=== PATIENT | female | born 1995 | race Caucasian/White ===

== ENCOUNTER 2016-08-23 20:30 | Observation (INO) | payer OTHER ==
[~2016-08-23] VITALS: Ht 160 cm; Wt 74.7 kg
--- NOTE | ~2016-08-23 | HP ---
PATIENT'S NAME: TIFF ADONIS [facility] AGE: 20 Y [address] ROOM: [place] [id number] LOCATION: [facility] [place] ADMIT DATE: 08/23/2016 History & Physical DISCHARGE DATE: FAMILY PHYSICIAN: Raymond Bah MD ATTENDING PHYSICIAN: Ramos De Paz DATE OF SERVICE: CHIEF COMPLAINT: Abdominal pain. REVIEW OF RECORD: Ms. Matthew is a pleasant 20-year-old Mohawk-speaking female who presented to the emergency room this evening with complaints of 5-day history of abdominal pain, she points to her epigastrium and right upper quadrant and radiating to her back. She said she had some fevers without documentation and also chills. She has not had any jaundice, but she has had some nausea and vomiting. Had no diarrhea, no dysuria or hematuria. She denies state. She said she has had the same kind of pain in March, she was diagnosed with gastroesophageal reflux disease. Said that, however, this pain is different because it has not quit. The workup included laboratory data which showed normal amylase, lipase, and liver function tests. Her urine had some nitrites in it and was sent for culture. However, her white count was up to 17,000. The ER team was suspicious for cholecystitis. Ultrasound performed showed thick-walled gallbladder with some pericholecystic fluid and gallstones with 1.5 cm one lodged in the infundibulum. Her pain was not going away, so they recommended surgical evaluation. The patient states she has not had any previous abdominal operations. She has not had any pancreatitis. She has no drug use. PAST MEDICAL HISTORY: MEDICATIONS: None. ALLERGIES: NONE. OPERATIONS: None. SOCIAL HISTORY: She is single. Does not smoke or abuse alcohol. FAMILY HISTORY: PATIENT'S NAME: ADONIS MATTHEW [facility] AGE: 20 Y [address] ROOM: [place] [address] LOCATION: [facility] [place] ADMIT DATE: 08/23/2016 History & Physical DISCHARGE DATE: FAMILY PHYSICIAN: Raymond Bah MD ATTENDING PHYSICIAN: Ramos De Paz Unremarkable for any heart disease, cancer, or diabetes. REVIEW OF SYSTEMS: She reports undocumented fevers. She has nausea. She has no change in her hearing or vision. No problems swallowing. Does not really have acid reflux symptoms. She reports occasional cough without sputum production. Denies any shortness of breath or chest pain. No lower abdominal pain. No dysuria or hematuria. No swollen joints. She does report the right flank back pain. PHYSICAL EXAMINATION: GENERAL: She is a distressed 20-year-old young lady, alert and cooperative. VITAL SIGNS: Temperature is 99.7, her pulse is 115, respiratory rate of 16, blood pressure 132/85, and 96% saturated on room air. HEENT: Her head is normocephalic. Sclerae are nonicteric. Mucous membranes are dry. NECK: Supple. There is no adenopathy. LUNGS: Clear to auscultation. HEART: Normal sinus rhythm with tachycardia noted. ABDOMEN: Mildly obese. Positive bowel sounds. It is soft in the lower abdomen, suprapubic location. Palpation of the right upper quadrant revealed tenderness and a slight tendency to guard. She has no palpable hepato or splenomegaly. EXTREMITIES: She has 2/2 femoral and dorsalis pedis pulses. No peripheral edema. IMPRESSION: Previous history of biliary colic symptoms, most likely in March, now this attack unremitting. She has no clinical signs of urinary tract infection, but she had an ultrasound which radiology interpreted as acute cholecystitis with gallbladder wall thickening and stones. The clinical picture fits with cholecystitis, and recommended laparoscopic cholecystectomy. The procedure, benefits, and risks including, but not limited to abdominal wall hernias, bowel injury, bleeding requiring transfusion, bile leak, common bile duct injury, cardiac pulmonary decompensation, and loss of life. We gave the option of nonoperative treatment with antibiotics. The patient and her family agreed to proceed. Thank you very much for allowing me to participate in her care. RAMOS DE PAZ MD WTS/modl PATIENT'S NAME: ADONIS MATTHEW [facility] AGE: 20 Y [address] ROOM: [address] [address] LOCATION: [facility] [place] ADMIT DATE: 08/23/2016 History & Physical DISCHARGE DATE: FAMILY PHYSICIAN: Raymond Bah MD ATTENDING PHYSICIAN: Ramos De Paz /[id number] D: [id number] T: [id number] HISTORY & PHYSICAL
--- NOTE | ~2016-08-23 | ER ---
PATIENT'S NAME: [facility] AGE: 20 Y [address] ROOM: [place] [address] LOCATION: [facility] [place] ADMIT DATE: 08/23/2016 ER/Outpatient Report DISCHARGE DATE: FAMILY PHYSICIAN: Raymond Bah MD ATTENDING PHYSICIAN: Ramos Sherman Time of Arrival: 2030 hours. Time of Evaluation: 0 hours. CHIEF COMPLAINT: Abdominal pain, fever. HISTORY OF PRESENT ILLNESS: This is a 20-year-old female, who presents to the ER. She states she has not been feeling well since Sunday. She states that she developed some upper abdominal pain, and she states that pain does wrap around both sides of her upper abdomen. She states then last night she had approximately seven emesis, but then her pain worsened tonight. She states that she feels like she has been having a fever, but she is not sure if she has had some urinary frequency. No pain with urination. She states that she has had some upper abdominal pain like this in the past, but that pain has always gone away. She does associate eating food with her abdominal pain. She did take a Zantac and a Zofran today, which did not help her. ALLERGIES: NO KNOWN ALLERGIES. MEDICATIONS: None. PAST MEDICAL HISTORY: Negative. PAST SURGERIES: None. SOCIAL HISTORY: No smoking, drug, or alcohol use. REVIEW OF SYSTEMS: All systems reviewed and are negative with the exception of those discussed in the HPI. PHYSICAL EXAMINATION: VITAL SIGNS: Height 5 feet 3 inches stated, weight 74.0 kg taken, blood PATIENT'S NAME: [facility] AGE: 20 Y [address] ROOM: [address] [address] LOCATION: [facility] [place] ADMIT DATE: 08/23/2016 ER/Outpatient Report DISCHARGE DATE: FAMILY PHYSICIAN: Raymond Bah MD ATTENDING PHYSICIAN: Ramos Sherman pressure is 132/85, pulse 115, respirations 16, temperature 99.7 degrees tympanically, and saturations 96% on room air. Alexandria Coma Score is 15. GENERAL: Alert, calm, well-developed female, in mild distress. HEENT: Head: Normocephalic. She does display moist mucous membranes. Eyes: Pupils are equal and reactive to light. NECK: Supple. No lymphadenopathy. LUNGS: Clear to auscultation bilaterally. HEART: Tachycardic. Normal rhythm. ABDOMEN: Soft. She does have some pain with palpation in midepigastric region. She has good bowel sounds throughout. No masses were palpated. EXTREMITIES: No clubbing, cyanosis, or edema. Full range of motion of all limbs. SKIN: Warm dry and intact. NEURO: Cranial nerves 2 through 12 grossly intact. Gait is steady without assistance. LABORATORY DATA: CBC: White count 18873, hemoglobin is 14.1, and platelets 298. CMS: Sodium 139, potassium 3.5, BUN 7, creatinine 0.6, alkaline phosphatase 72, AST 15, ALT 25, amylase 33, lipase is 83. Urinalysis, leukocytes 100, nitrites positive. UA micro, white blood cells 5-10, red blood cells 10-20, epithelial 10-20, bacteria many. Urine HCG was negative. Ultrasound of the right upper quadrant shows a sludge with gallbladder wall thickening and gallstones consistent with the early acute cholecystitis. IMPRESSION: 1. Cholecystitis. 2. Urinary tract infection. ASSESSMENT AND PLAN: We did start an IV here in the emergency room and did give her some IV fluids along with 4 mg of zofran and a total of 4 mg of morphine for her pain. I did discuss the patient's care with Dr. Cash. I also called Dr. Sherman, who is on-call for surgery this evening, he will be coming in to evaluate the patient here in the emergency room. We will be turning the care over to Dr. Sherman at this time. The patient's mother understands and agrees with care. SAPPHIRE CARO PA-C FOR MD DANNIE DEL CASTILLO/shakeel PATIENT'S NAME: ADONIS MATTHEW [facility] AGE: 20 Y [address] ROOM: [place] [address] LOCATION: [facility] [place] ADMIT DATE: 08/23/2016 ER/Outpatient Report DISCHARGE DATE: FAMILY PHYSICIAN: Raymond Bah MD ATTENDING PHYSICIAN: Ramos Sherman /[id number] d: t: 08/26/16 1220, OUTPATIENT REPORT
--- NOTE | ~2016-08-23 | OR ---
PATIENT'S NAME: ADONIS MATTHEW [facility] AGE: 20 Y [address] ROOM: [address] [address] LOCATION: [facility] [place] ADMIT DATE: 08/23/2016 OR/Procedure Report DISCHARGE DATE: FAMILY PHYSICIAN: Raymond Bah MD ATTENDING PHYSICIAN: Cristian Sherman SURGEON: Cristian Sherman MD OPERATOR ELECTRONIC WARFARE: DATE OF PROCEDURE: 08/23/2016 PREOPERATIVE DIAGNOSIS: Acute cholecystitis/cholelithiasis. POSTOPERATIVE DIAGNOSES: Acute cholecystitis/cholelithiasis, cystic duct obstruction in the infundibulum secondary to stone impaction. PROCEDURE: Laparoscopic cholecystectomy. ANESTHESIA: General with 30 mL of 0.5% Marcaine. SPECIMENS: Gallbladder with stones and acute inflammatory changes. INDICATION: The patient is a 20-year-old young lady with a 5-day history of abdominal pain in the epigastrium, right upper quadrant radiating to [place] [address]. Normal liver function tests, amylase, and lipase. However, ultrasound showed gallbladder with thickened wall, edematous wall, and impacted stone in the infundibulum. She was clinically consistent with acute cholecystitis. She has had previous biliary colic attacks. The patient agrees to undergo cholecystectomy. DESCRIPTION OF PROCEDURE: After informed consent, the patient was taken to the operating room, and after general endotracheal anesthesia, the patient's abdomen was prepped and draped into a sterile field. Time-out performed. We confirmed the patient, planned procedure, and administration of preop antibiotics. Local anesthetic infiltrated prior to each incision. The first one made below the umbilicus, carried down to identify the anterior fascia through which a Veress needle inserted, pneumoperitoneum created, an 11-mm trocar and laparoscope were inserted, safe entry was noted under direct vision, the remaining trocars were placed. The gallbladder had inflammatory changes and exudative process on top of it and it was tightly distended. We had to aspirate 30 mL of purulent looking bile out of the gallbladder in order to grab the fundus, we then retracted at cephalad and laterally. We stripped down the edematous hepatoduodenal ligament until we identified, and I got circumferential control around the small caliber cystic duct. Obvious stone impaction in the infundibulum was noted. We clipped the cystic duct x4 and divided with one clip remaining on the specimen side. The cystic artery was then dissected out carefully, clipped x3 and divided. The gallbladder was PATIENT'S NAME: ADONIS MATTHEW [facility] AGE: 20 Y [address] ROOM: [address] [place], [place] [address] LOCATION: [facility] [place] ADMIT DATE: 08/23/2016 OR/Procedure Report DISCHARGE DATE: FAMILY PHYSICIAN: Raymond Bah MD ATTENDING PHYSICIAN: Cristian Sherman removed from the liver bed with electrocautery, placed into an EndoCatch bag, and brought out through the umbilical fascial defect. We irrigated the gallbladder fossa, cauterized for hemostasis. We copiously irrigated until clear. We used 0 Vicryl and an Endo Close to approximate the fascial defect in the subxiphoid location. We then closed the fascial defect at the umbilicus with 0 Vicryl, skin incisions closed with subcuticular 4-0 Vicryl. Steri-Strips and sterile dressings were applied. The patient tolerated the procedure well, transferred to recovery room in stable condition. CRISTIAN SHERMAN MD WTS/modl /[id number] d: 08/24/16 0529 t: 09/04/16 1540, OPERATIVE SUMMARY
[2016-08-23 20:44] LABS: BILIRUBIN URINE NEGATIVE (NEGATIVE); BLOOD URINE 25 /UL (NEGATIVE); COLOR URINE YELLOW (YELLOW); GLUCOSE URINE NEGATIVE (NEGATIVE); KETONE URINE 150 mg/dL (NEGATIVE); LEUKOCYTES URINE 100 /UL (NEGATIVE); NITRITE URINE POSITIVE (NEGATIVE); PROTEIN URINE 30 mg/dL (NEGATIVE); SPEC GRAVITY URINE 1.025 (1.003-1.035); TURBIDITY URINE 1+ (CLEAR); UROBILINOGEN URINE 1 mg/dL (NORMAL)
[2016-08-23 21:04] LABS: BACTERIA URINE MANY (NEGATIVE); MUCUS URINE 2+ (NEGATIVE)
[2016-08-23 21:12] LABS: BASOPHIL % 0.2 %; HEMOGLOBIN 14.1 g/dL (11.0-15.0); IMMATURE GRANULOCYTE # 0.1 K/uL (0.0-0.3); IMMATURE GRANULOCYTE % 0.4 %; LYMPHOCYTE # 1.7 K/uL (0.8-4.0); LYMPHOCYTE % 9.7 %; MCH 25.3 pg (27.0-34.0); MCHC 32.8 gm/dL (32.0-36.5); MCV 77.2 fl (83.0-98.0); MONOCYTE # 1.5 K/uL (0.0-1.0); MONOCYTE % 8.9 %; MPV 11.8 fl (9.4-12.4); NEUTROPHIL # (ANC) 13.8 K/uL (1.8-7.8); NEUTROPHIL % 80.8 %; NRBC % 0 /100WBC (0-0.00); PLATELET COUNT 298 K/uL (150-450); RBC 5.57 M/uL (3.50-5.00); RDW-CV 14.5 % (11.9-14.6)
[2016-08-23 21:32] LABS: ALBUMIN 3.5 gm/dL (3.5-5.0); ALK PHOS 72 IU/L (33-138); ALT 25 IU/L (12-78); ANION GAP 12.5 (10.0-19.0); AST 15 IU/L (10-40); BLOOD UREA NITROGEN 7 mg/dL (6-24); CHLORIDE 107 mMol/L (96-110); CO2 23 mMol/L (22-32); CREATININE 0.6 mg/dL (0.5-1.1); ESTIMATED GFR (MDRD EQUATION) > 60; POTASSIUM 3.5 mMol/L (3.7-5.1); SODIUM 139 mMol/L (135-145); TOTAL BILIRUBIN 0.6 mg/dL (0.0-1.5); TOTAL PROTEIN 8.6 g/dL (6.0-8.4)
--- NOTE | 2016-08-24 04:22 | NUR ---
20 year old female admitted for abdominal and epigastric pain. Arrived to floor from surgery at 0050. No known allergies. No past medical history. Ultrasound showed gallstones and wall thickening. Positive for UTI as well. VSS. RA. 2mg morphine given when arrived to floor. Pt. has been up to bathroom and walked in mendiola. Diet advance as tolerated. IV in L) hand with fluids at 100ml. Sister at bedside. Pleasant and cooperative with cares. Slept well after arrived on floor. Possible d/c today.
[2016-08-24] MEDS ORDERED: TYLENOL EXTRA500 MG PO (09:01)
[2016-08-24] MEDS ORDERED: ADVIL200 MG PO (09:01)
[2016-08-24] MEDS ORDERED: NORCO 5-325 TA1 EACH PO (13:26)
[2016-08-24] MEDS ORDERED: BACTRIM DS1 TAB PO (14:05)
== END 2016-08-24 15:05 | disposition disaster alternative care site (69) ==
LOC: GMED 20:30 → GMSU 22:42
PROVIDERS: Emergency Medicine; Physician Assistant Medical; ADMIT Surgery
PROC: 0FT44ZZ Resection of Gallbladder, Percutaneous Endoscopic Approach (ICD-10-PCS; principal; 2016-08-23)
DX: K80.01 Calculus of gallbladder with acute cholecystitis with obstruction (principal)
CPT/HCPCS: J1335; J2270; J2405; J7030; J7120